=== PATIENT | male | born 1975 | race Caucasian/White ===

== ENCOUNTER 2019-11-16 09:03 | Emergency (ER) | payer OTHER ==
[~2019-11-16] VITALS: Ht 177.8 cm; Wt 81.6 kg
[~2019-11-16 09:03] MED LIST: GENVOYA TABLET1 EACH; ZOVIRAX5 GM
== END 2019-11-16 10:55 | disposition home or self-care (01) ==
LOC: ER 09:03
DX: J03.80 Acute tonsillitis due to other specified organisms (principal)